=== PATIENT | female | born 1995 | race Two or more races ===

== ENCOUNTER 2020-08-12 09:57 | Outpatient (CLI) | payer OTHER | END 2020-08-12 09:58 | disposition home or self-care (01) | LOC: PPH VACUNA 09:57 | DX: Z23 Encounter for immunization (principal) ==

== ENCOUNTER 2020-09-11 08:00 | Outpatient (CLI) | payer OTHER | END 2020-09-11 08:30 | disposition home or self-care (01) | LOC: PPH VACUNA 08:00 | DX: Z23 Encounter for immunization (principal) ==